=== PATIENT | male | born 1985 | race Hispanic/Latino ===

== ENCOUNTER 2020-02-23 12:01 | Emergency (ER) | payer SELFPAY ==
[2020-02-23] MEDS ORDERED: IBUPROFEN 200 MG TAB PO ONE (18:16)
--- NOTE | 2020-02-23 18:19 | ED.PDOC ---
History of Present Illness - General Time Seen by Provider: 02/23/20 18:16 Source: patient - History of Present Illness Initial Comments: 34-year-old male who presents with chief complaint of right ring finger pain following acute injury this morning. Patient reports he was trying to load a trailer onto the hitch of his truck when the trailer slipped and he smashed the right ring finger. He reports swelling and chief complaint of inability to flex the DIP joint since the injury. He is able to flex fully the PIP joint. He reports constant sharp/throbbing 3/10 severity pain to the distal finger which radiates throughout the finger, worsens with palpation of the digit and with range of motion of the DIP joint. Denies any weakness, color change, numbness. He does report moderate swelling. He has not taken any medication for pain. Allergies/Adverse Reactions: Allergies NO KNOWN ALLERGY Allergy (Verified 02/23/20 18:23) Home Medications: Ambulatory Orders Acetaminophen W/ Codeine [Tylenol W/ CODEINE #3] 1 tab PO Q6H PRN 10 Days #10 tab 02/23/20 Review of Systems - Review of Systems Review of Systems: 02/23/20 18:19 as per HPI All other Systems: Reviewed and Negative Family Medical History - Family History Mother Family History: No Known Physical Exam - Physical Exam General Appearance: Alert, Comfortable, No apparent distress Eyes, Ears, Nose, Throat Exam: normal ENT inspection Neck: full range of motion, normal inspection Cardiovascular/Respiratory: regular rate, rhythm, no M/R/G, normal peripheral pulses, no JVD, normal breath sounds, no respiratory distress Abdominal Exam: non-tender Back Exam: normal inspection Shoulder Exam: normal inspection Elbow/Forearm Exam: normal inspection Wrist Exam: normal inspection Hand Exam: limited ROM - Unable to flex R 4th digit DIP joint at all. Full flexion ROM of PIP joint, swelling - Moderate to right fourth digit near the DIP joint. There is marked tenderness to palpation at this area. Neuro/Tendon: normal sensation, normal motor functions, normal tendon functions Mental Status: alert, oriented x 3 Skin Exam: normal color Progress - Progress Progress: 02/23/20 18:19 Acute right fourth digit pain -Suspect phalanx fracture of the digit most likely. Consider also ligament/tendon injury, sprain/strain, hand fracture, other -Obtain x-ray imaging of the right hand, cold pack and ibuprofen for pain 02/23/20 19:44 -X-ray imaging of the right hand reveals volar avulsion fracture of the distal phalanx of the fourth digit of the right hand. The avulsed fractured segment is located proximally and volar to the DIP joint. -Discussed the findings and diagnosis of distal phalanx avulsion fracture and [place] finger with patient. This explains why he is unable to flex the DIP joint. His flexion range of motion is intact at the PIP joint. Thus I suspect that he has either a type II or type III flexor digitorum profundus avulsion injury, which does not require emergent surgical repair and can be managed as outpatient. A splint was applied to the digit and the patient was instructed to follow-up in the next 3 to 5 days with hand surgery as an outpatient. A written referral was given and a as needed prescription of Tylenol 3 was given for breakthrough pain -Discharge home in good condition Taj Littlejohn MD Billing #[id number] Departure - Departure Clinical Impression: Avulsion fracture of distal phalanx of finger Qualifiers: Encounter type: initial encounter Fracture type: closed Qualified Code(s): S62.639A - Displaced fracture of distal phalanx of unspecified finger, initial encounter for closed fracture [place] finger Qualifiers: Encounter type: initial encounter Qualified Code(s): S63.639A - Sprain of interphalangeal joint of unspecified finger, initial encounter Time of Disposition: 19:39 Disposition: Discharge to Home or Self Care Condition: Good Instructions: Common Finger Injuries (DC), Finger Fracture (DC) Diet: resume usual diet Activity: other - wear splint at all time Prescriptions: Acetaminophen W/ Codeine [Tylenol W/ CODEINE #3] 1 tab PO Q6H PRN 10 Days #10 tab PRN Reason: Pain Home Medications: Ambulatory Orders Acetaminophen W/ Codeine [Tylenol W/ CODEINE #3] 1 tab PO Q6H PRN 10 Days #10 tab 02/23/20 Additional Instructions: Wear the splint to the right ring finger at all times as directed. Continue applying a cold compress frequently and taking [id number]-[id number] medications as needed for pain such as Tylenol 650 mg every 6 hours as needed and ibuprofen 800 mg every 6-8 hours as needed. You may take the Tylenol 3 as directed for breakthrough pain but do not drive or operate heavy machinery when taking this. Follow-up with hand surgery in the clinic is recommended in the next 3 to 5 days for repeat evaluation of the finger fracture.
[2020-02-23] MEDS ORDERED: LIDOCAINE 1% 10 ML VIAL INJ ONE (18:43)
--- NOTE | 2020-02-23 18:59 | RAD ---
EXAM DESCRIPTION: Hand,Right 3 Views CLINICAL HISTORY: 34 years Male acute pain R 4th digit, smashing injury trailer COMPARISON: None TECHNIQUE: AP, lateral and oblique views of the right hand are obtained. FINDINGS: OSSEOUS: There is an acute avulsion fracture off the dorsal articular surface of the distal phalanx of the fourth digit. The osseous fragment is positioned volar to the distal aspect of the middle phalanx of this digit. There is associated soft tissue swelling. There is no evidence of subluxation or dislocation. The joint spaces are preserved. There is no evidence of degenerative osteophytosis or sclerosis. There is no evidence of marginal erosive changes to suggest an inflammatory arthritis. SOFT TISSUE: As above. No evidence of significant soft tissue calcifications. No radiopaque foreign bodies. IMPRESSION: There is an acute avulsion fracture off the dorsal articular surface of the distal phalanx of the fourth digit. The osseous fragment is positioned volar to the distal aspect of the middle phalanx of this digit. There is associated soft tissue swelling. Remainder of findings as described above. Electronically signed by: Payton Obrien MD 02/23/2020 6:58 PM [facility]
[2020-02-23 19:54] VITALS: BP 127/92; TEMP 98; O2SAT 98
== END 2020-02-23 19:47 | disposition home or self-care (01) ==
LOC: ER 12:01
DX: S62.634A Displaced fracture of distal phalanx of right ring finger, initial encounter for closed fracture (principal); S63.632A Sprain of interphalangeal joint of right middle finger, initial encounter; W22.8XXA Striking against or struck by other objects, initial encounter; Y93.89 Activity, other specified; Y92.9 Unspecified place or not applicable